=== PATIENT | male | born 1985 | race Caucasian/White ===

== ENCOUNTER 2017-05-13 13:49 | Emergency (ER) | payer MEDICAID ==
[2017-05-13 13:59] VITALS: RESP 16
[2017-05-13 14:11] LABS: COLOR YELLOW; LEUKOCYTE ESTERASE,URINE NEGATIVE (NEGATIVE); NITRITE,URINE NEGATIVE (NEGATIVE)
[2017-05-13] MEDS ORDERED: ACETAMINOPHEN 500 MG TAB PO ONE (14:14)
[2017-05-13] MEDS ORDERED: IBUPROFEN 600 MG TAB PO ONE (14:14)
--- NOTE | 2017-05-13 14:33 | EDPHY ---
H & P Time Seen by Provider: 05/13/17 13:55 HPI/ROS: This patient has acute on chronic left lumbar paraspinous back pain. He explains that he has had low back pain for more than a year and has had outpatient workup including MRI that revealed no significant pathology. He has taken muscle relaxants at times with partial relief but he reports over the past 2 days increasing his pain to severe intensity. He reports that this worsened slightly with some movements and notes no other exacerbating factors including no significant relief from NSAIDs and Tylenol. He has not taken any medications today. He has an appointment sees primary care physician on Sunday but did not feel that he could make it through the rest of the day with his current level of pain. His spouse brought in by private vehicle for further evaluation. 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 ROS: Constitutional: No fevers HEENT: No complaints Pulmonary: No shortness of breath or chest pain or cough. GI: No associated abdominal pain. : No hematuria or dysuria. No testicular pain or swelling. Integumentary: No skin rash Neuro: No focal numbness tingling weakness. No bowel or bladder incontinence. 7 point ROS is otherwise negative. Past Medical/Surgical History: Chronic lumbar back pain with lumbar MRI within the last year that was unrevealing for acute pathology per patient's report. Smoking Status: Current every day smoker Physical Exam: General Appearance: Alert, no distress. Eyes: Pupils equal and round no pallor or injection. ENT, Mouth: Mucous membranes moist. Respiratory: There are no retractions, lungs are clear to auscultation. Cardiovascular: Regular rate and rhythm. Gastrointestinal: Abdomen is soft and nontender, no masses, bowel sounds normal. Back: No midline tenderness. He has left paraspinous muscular tenderness that reproduces symptoms. No CVA tenderness. Straight leg raise is negative bilaterally. Neurological: GCS 15. Patient maintains normal light touch sensation upper and lower extremities bilaterally. He maintains 2+ symmetric patellar DTRs bilaterally and weak but symmetric Achilles DTRs bilaterally. He maintains 5/5 strength in great toe dorsiflexion and plantar flexion bilaterally. Skin: Warm and dry, no rashes. Extremities are symmetrical, full range of motion. Psychiatric: Mood and affect are normal DIFFERENTIAL DIAGNOSIS: After history and physical exam differential diagnosis was considered for lumbar strain, doubt ureteral stone, doubt discogenic disease Constitutional: Initial Vital Signs Temperature (C) 36.8 C 05/13/17 13:57 Heart Rate 92 05/13/17 13:57 Respiratory Rate 16 05/13/17 13:57 Blood Pressure 122/76 H 05/13/17 13:57 O2 Sat (%) 98 05/13/17 13:57 O2 Delivery Mode Room Air Allergies/Adverse Reactions: amoxicillin trihydrate [From Augmentin] Allergy (Verified 05/13/17 13:55) potassium clavulanate [From Augmentin] Allergy (Verified 05/13/17 13:55) Home Medications: Medication Instructions Recorded Xanax For Anxiety 05/22/12 Ibuprofen [Motrin (*)] 800 mg PO Q6 #15 tab 02/27/16 Cyclobenzaprine 05/13/17 Methocarbamol [Robaxin 750 mg (*)] 750 - 1,500 mg PO QID PRN #30 tab 05/13/17 traMADol [Ultram 50 mg (*)] 50 - 100 mg PO Q4 PRN #15 tab 05/13/17 MDM/Departure - MDM Diagnostics: Urinalysis is normal Medications Given: Discontinued Medications Acetaminophen (Tylenol) 1,000 mg PO EDNOW ONE Stop: 05/13/17 14:15 Last Admin: 05/13/17 14:18 Dose: 1,000 mg Ibuprofen (Motrin) 600 mg PO EDNOW ONE Stop: 05/13/17 14:15 Last Admin: 05/13/17 14:18 Dose: 600 mg ED Course/Re-evaluation: Patient is treated with ibuprofen Tylenol. I counseled regarding low back strain and demonstrated stretches that may be helpful for his condition. No evidence of cauda equina. We ruled out UTI. Do not think he has a return stone given normal urine lack of other associated findings. No sensory or motor deficits. - Depart Disposition: Home, Routine, Self-Care Clinical Impression: Low back pain Qualifiers: Chronicity: chronic Back pain laterality: left Sciatica presence: without sciatica Qualified Code(s): M54.5 - Low back pain; G89.29 - Other chronic pain; G89.29 - Other chronic pain Condition: Good Instructions: Acute Low Back Pain (ED) Additional Instructions: DX: Low back strain Plan: Ibuprofen 400-600 mg per 6 hours regularly for the next week then as needed. Methocarbamol muscle relaxants as needed. Tylenol & tramadol in addition as needed for pain. No driving alcohol or work on tramadol Starts daily stretches prior to taking muscle relaxants and Vicodin in the morning. 3-5 minutes each of: "Butterfly stretch," "Sphinx stretch", "pigeon stretch", and hamstring stretch. Avoid lifting more than 5-10 pounds until symptoms improve. Call your primary care physician for a followup appointment in 3-7 days. Go to the emergency department for worsening of your symptoms despite the treatment plan. Prescriptions: Methocarbamol [Robaxin 750 mg (*)] 750 - 1,500 mg PO QID PRN #30 tab PRN Reason: Muscle Spasms traMADol [Ultram 50 mg (*)] 50 - 100 mg PO Q4 PRN #15 tab PRN Reason: breakthrough pain Referrals: NONE *PRIMARY CARE P,. [Primary Care Provider] - As per Instructions
[2017-05-13 14:49] VITALS: BP 120/80; PULSE 73; TEMP 97.9; O2SAT 96
== END 2017-05-13 14:53 | disposition home or self-care (01) ==
LOC: CED 13:49
DX: M54.5 Low back pain (principal); G89.29 Other chronic pain; F17.200 Nicotine dependence, unspecified, uncomplicated
CPT/HCPCS: 81003-PO

== ENCOUNTER 2017-07-06 17:46 | Emergency (ER) | payer MEDICAID ==
--- NOTE | 2017-07-06 18:15 | EDPHY ---
H & P Time Seen by Provider: 07/06/17 18:03 HPI/ROS: I saw this patient in April with back pain reports he still has ongoing back pain. The location is left paraspinous lumbar. It has been waxing waning in severity but worse over the past 8 days. He describes the pain is severe nonradiating similar to prior back pains. When I saw him in April I prescribed add methocarbamol and total of 15 tramadol. He has since follow up with primary care physician who referred him to physical therapy and reports compliance with stretching and physical therapy. He denies any acute injuries. He requests more medication for pain relief and reports his primary care physician's providing Robaxin. 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 ROS: Constitutional: No fevers or chills HEENT: No complaints pulmonary: No complaints including no shortness of breath or cough. Cardiovascular: No complaints. GI: No abdominal pain. : No hematuria or testicular pain. No urinary symptoms. Integumentary: No skin rash Neuro: No numbness tingling or focal weakness. No bowel or bladder incontinence. 10 point ROS is otherwise negative. Smoking Status: Current every day smoker Physical Exam: General Appearance: Alert, no distress. Eyes: Pupils equal and round no pallor or injection. ENT, Mouth: Mucous membranes moist. Respiratory: There are no retractions, lungs are clear to auscultation. Cardiovascular: Regular rate and rhythm. Gastrointestinal: Abdomen is soft and nontender, no masses, bowel sounds normal. Back: Mild paraspinous lumbar tenderness the left. No midline tenderness. No tenderness the sciatic notch. Straight leg raise is negative bilaterally. Neurological: GCS 15. He maintains normal light touch sensory exam bilateral lower extremities, 5/5 strength in great toe dorsiflexion plantar flexion bilaterally and weak but symmetric patellar and Achilles DTRs bilaterally. Skin: Warm and dry, no rashes. Psychiatric: Mood and affect are normal DIFFERENTIAL DIAGNOSIS: After history and physical exam differential diagnosis was considered for low back strain, malingering, pyelonephritis, Constitutional: Initial Vital Signs Temperature (C) 36.6 C 07/06/17 17:48 Heart Rate 66 07/06/17 17:48 Respiratory Rate 16 07/06/17 17:48 Blood Pressure 130/79 H 07/06/17 17:48 O2 Sat (%) 97 07/06/17 17:48 O2 Delivery Mode Room Air Allergies/Adverse Reactions: amoxicillin trihydrate [From Augmentin] Allergy (Verified 07/06/17 17:52) potassium clavulanate [From Augmentin] Allergy (Verified 07/06/17 17:52) Home Medications: Medication Instructions Recorded Xanax For Anxiety 05/22/12 Ibuprofen [Motrin (*)] 800 mg PO Q6 #15 tab 02/27/16 Cyclobenzaprine 05/13/17 Methocarbamol [Robaxin 750 mg (*)] 750 - 1,500 mg PO QID PRN #30 tab 05/13/17 traMADol [Ultram 50 mg (*)] 50 - 100 mg PO Q4 PRN #15 tab 05/13/17 Lidocaine 5% [Lidoderm 5% Patch 1 ea TD DAILY #20 patch 07/06/17 (*)] traZODone 07/06/17 MDM/Departure - MDM Diagnostics: Urinalysis is normal ED Course/Re-evaluation: Discussion: Patient has a benign physical exam with ongoing back pain. I will not provide this patient with opiates given the paucity of findings. I suggested that he try Lidoderm patches (& prescribed them) at night if the pain is preventing sleep as he suggests. I counseled him to continue physical therapy and stretches that showed a minus prior visit in April. Follow up with work comp and/or his primary care physician. No evidence of cauda equina or other concerning findings today. He will return for any significant worsening despite the treatment plan. - Depart Disposition: Home, Routine, Self-Care Clinical Impression: Low back pain Qualifiers: Chronicity: acute Back pain laterality: left Sciatica presence: without sciatica Qualified Code(s): M54.5 - Low back pain Condition: Good Instructions: Low Back Strain (ED) Additional Instructions: DX: Low back strain Plan: Ibuprofen 400-600 mg per 6 hours regularly for the next week then as needed. Methocarbamol muscle relaxants as needed. Tylenol and Lidoderm patches in addition as needed for pain. Starts daily stretches prior to taking muscle relaxants and Vicodin in the morning. 3-5 minutes each of: "Butterfly stretch," "Sphinx stretch", "pigeon stretch", and hamstring stretch. Avoid lifting more than 5-10 pounds until symptoms improve. Call your primary care physician for a followup appointment in 3-7 days. Go to the emergency department for worsening of your symptoms despite the treatment plan. Prescriptions: Lidocaine 5% [Lidoderm 5% Patch (*)] 1 ea TD DAILY #20 patch Referrals: Kadie Kaur MD [Primary Care Provider] - As per Instructions
[2017-07-06 19:00] VITALS: BP 115/72; PULSE 75; RESP 18; TEMP 98.2; O2SAT 95
== END 2017-07-06 19:00 | disposition home or self-care (01) ==
LOC: CED 17:46
DX: M54.5 Low back pain (principal); F17.200 Nicotine dependence, unspecified, uncomplicated
CPT/HCPCS: 81003-PO

== ENCOUNTER → 2017-07-17 | Outpatient (CLI) | payer MEDICAID ==
[~2017-07-17] MED LIST: GADOBUTROL 10 ML VIAL IVP ONE
== END ==
LOC: FIMAGING 19:29
PROVIDERS: ATTEND Internal Medicine
DX: M47.896 Other spondylosis, lumbar region (principal); M46.46 Discitis, unspecified, lumbar region
CPT/HCPCS: A9585